=== PATIENT | female | born 1975 | race Caucasian/White ===

== ENCOUNTER 2020-09-03 18:39 | Inpatient (IN) | payer OTHER ==
[2020-09-03 19:29] VITALS: BMI 31.6
[2020-09-03] MEDS ORDERED: MAGNESIUM HYDROX 2400MG/30ML ORAL SUSPENSION 30 ML CUP PO PRN (20:42)
[2020-09-03] MEDS ORDERED: BISMUTH SUBSALICYLATE 524 MG/30 ML PO PRN (20:42)
[2020-09-03] MEDS ORDERED: IBUPROFEN 400 MG TABLET (FP) PO PRN (20:42)
[2020-09-03] MEDS ORDERED: ONDANSETRON *ODT* 4 MG TABLET SL PRN (20:42)
[2020-09-03] MEDS ORDERED: METHOCARBAMOL 500 MG TABLET PO PRN (20:42)
[2020-09-03] MEDS ORDERED: ACETAMINOPHEN 325 MG TABLET (FP) PO PRN ×2 (20:42)
[2020-09-03] MEDS ORDERED: MENTHOL/PHENOL 1 EACH UD MM PRN (20:42)
[2020-09-03] MEDS ORDERED: MAGNESIUM CITRATE 300 ML BOTTLE PO PRN (20:42)
[2020-09-03] MEDS ORDERED: MAG HYDROX/AL HYDROX/SIMETH 30 ML UNIT-DOSE CUP PO PRN (20:42)
[2020-09-03] MEDS ORDERED: NICOTINE POLACRILEX 2 MG GUM BUC PRN (20:42)
[2020-09-03] MEDS ORDERED: THIAMINE HCL 100 MG TABLET (FP) PO SCH (22:00)
[2020-09-03] MEDS ORDERED: MELATONIN 5 MG TABLETS PO SCH (22:00)
[2020-09-04 09:24] VITALS: BP 114/63; PULSE 77; TEMP 96.9
[2020-09-04 09:56] LABS: CALCIUM 9.1 mg/dL (8.5-10.1)
[2020-09-04 09:57] LABS: BLOOD UREA NITROGEN 15.1 mg/dL (7-18)
[2020-09-04 09:58] LABS: ALBUMIN 3.7 g/dl (3.4-5.0); HEMATOCRIT 37.8 % (32.4-45.2); HEMOGLOBIN 12.7 GM/dL (10.7-15.3); MCH 33.1 pg (25.7-33.7); MCHC 33.5 g/dl (32.0-36.0); MEAN CELL VOLUME 98.6 fl (80-96); MEAN PLT VOLUME 10.2 fl (7.5-11.1); PLATELET COUNT 218 K/MM3 (134-434); RBC 3.83 M/mm3 (3.60-5.2); WHITE BLOOD COUNT 5.8 K/mm3 (4.0-10.0)
[2020-09-04] MEDS ORDERED: PRENATAL VITAMINS W/ FOLIC ACID TABLET (FP) PO SCH (10:00)
[2020-09-04] MEDS ORDERED: ESCITALOPRAM OXALATE 10 MG TABLET PO SCH (10:00)
[2020-09-04] MEDS ORDERED: NICOTINE 14 MG/24 HOURS TOPICAL PATCH TD SCH (10:00)
[2020-09-04 10:01] LABS: CREATININE 0.5 mg/dL (0.55-1.3)
[2020-09-04 10:03] LABS: BILIRUBIN,TOTAL 0.4 mg/dL (0.2-1); TOT PROT 6.7 g/dl (6.4-8.2)
== END 2020-09-04 11:34 | disposition home or self-care (01) | DRG 897 ==
LOC: YASAS 18:39 → Y3N 21:57 → UNDOADMIN 21:57 → Y3N 22:36 → UNDODISIN 09-04 11:34
PROVIDERS: ADMIT Allergy & Immunology; ATTEND Allergy & Immunology
PROC: HZ2ZZZZ Detoxification Services for Substance Abuse Treatment (ICD-10-PCS; principal; 2020-09-03)
DX: F10.230 Alcohol dependence with withdrawal, uncomplicated (principal); F17.210 Nicotine dependence, cigarettes, uncomplicated; F41.9 Anxiety disorder, unspecified; F32.9 Major depressive disorder, single episode, unspecified; E78.5 Hyperlipidemia, unspecified
CPT/HCPCS: 36415; 80053; 81025; 85027; 86780; 93005; 93010; C9803; U0003; U0005